=== PATIENT | male | born 1985 | race Caucasian/White ===

== ENCOUNTER 2018-08-15 11:31 | Emergency (ER) | payer OTHER ==
--- NOTE | 2018-08-15 12:32 | ED ---
URI HPI - General Chief Complaint: Upper Respiratory Infection Stated Complaint: Chest Congestion Time Seen by Provider: 08/15/18 11:45 Source: patient, RN notes reviewed Mode of arrival: ambulatory Limitations: no limitations - History of Present Illness Initial Comments: 32-year-old male presents emergency Department chief complaint cough congestion 2 weeks. Patient states it's not getting better. He states he has productive cough with green sputum. Patient's had some intermittent shortness of breath no chest pain. Patient denies current fever or chills he did have someone symptoms started. Denies ear pain does admit to facial pressure and nasal congestion. Patient has not taken any [id number] cough and cold medications NO KNOWN DRUG ALLERGIES. - Related Data Home Medications Medication Instructions Recorded Confirmed Ibuprofen [Motrin] 800 mg PO TID 07/15/16 07/15/16 Sertraline HCl [Zoloft] 100 mg PO DAILY 07/15/16 07/15/16 Previous Rx's Medication Instructions Recorded Benztropine Mesylate [Cogentin] 1 mg PO DAILY #30 tab 07/22/16 Citalopram Hydrobromide [CeleXA] 40 mg PO DAILY #30 tab 07/22/16 Divalproex ER [Depakote ER] 1,000 mg PO HS #60 tab.er.24h 07/22/16 Haloperidol [Haldol] 10 mg PO HS #60 tab 07/22/16 Ibuprofen [Motrin] 600 mg PO Q8H #30 tab 07/22/16 LORazepam [Ativan] 0.5 mg PO QID #30 tab 07/22/16 Propranolol [Inderal] 20 mg PO TID #60 tab 07/22/16 traMADol HCl [Ultram] 50 mg PO BID #30 tab 07/22/16 traZODone HCL [Desyrel] 150 mg PO HS #30 tab 07/22/16 Levofloxacin [Levaquin] 500 mg PO DAILY #10 tab 08/15/18 predniSONE 50 mg PO DAILY #5 tab 08/15/18 Allergies Allergy/AdvReac Type Severity Reaction Status Date / Time No Known Allergies Allergy Verified 08/15/18 11:38 Review of Systems ROS Statement: Those systems with pertinent positive or pertinent negative responses have been documented in the HPI. ROS Other: All systems not noted in ROS Statement are negative. Past Medical History Past Medical History: Hypertension, Musculoskeletal Disorder Additional Past Medical History / Comment(s): 3 surgeries to L Knee, and the knee cap was removed 05/31 History of Any Multi-Drug Resistant Organisms: None Reported Past Surgical History: Orthopedic Surgery, Tonsillectomy Additional Past Surgical History / Comment(s): left knee 3 surgeries Past Anesthesia/Blood Transfusion Reactions: No Reported Reaction Past Psychological History: ADD/ADHD, Anxiety, Depression, PTSD Smoking Status: Never smoker Past Alcohol Use History: Occasional Past Drug Use History: Heroin, Marijuana - Past Family History Mother Family Medical History: No Reported History Father Family Medical History: No Reported History Brother(s) Family Medical History: No Reported History General Exam Limitations: no limitations General appearance: alert, in no apparent distress Head exam: Present: atraumatic, normocephalic, normal inspection Eye exam: Present: normal appearance, PERRL, EOMI. Absent: scleral icterus, conjunctival injection, periorbital swelling ENT exam: Present: mucous membranes moist, TM's normal bilaterally, normal external ear exam. Absent: normal oropharynx (Postnasal drainage) Neck exam: Present: normal inspection, full ROM. Absent: tenderness, meningismus, lymphadenopathy Respiratory exam: Present: normal lung sounds bilaterally. Absent: respiratory distress, wheezes, rales, rhonchi, stridor Cardiovascular Exam: Present: regular rate, normal rhythm, normal heart sounds. Absent: systolic murmur, diastolic murmur, rubs, gallop, clicks Back exam: Absent: CVA tenderness (R), CVA tenderness (L) Skin exam: Present: warm, dry, intact, normal color. Absent: rash Course Vital Signs 08/15/18 08/15/18 11:38 12:19 Temperature 98 F Pulse Rate 94 Respiratory 18 20 Rate Blood Pressure 162/117 O2 Sat by Pulse 97 Oximetry Medical Decision Making - Medical Decision Making 32-year-old male presented from for cough and congestion. Patient symptoms have been present for 2 weeks. Chest x-ray shows early evidence of pneumonia on the right. Patient was treated with antibiotics and steroids for acute sinusitis and pneumonia. Return parameters were discussed. Disposition Clinical Impression: Sinusitis, Pneumonia Disposition: HOME SELF-CARE Condition: Stable Instructions: Upper Respiratory Infection (ED) Additional Instructions: Please return to the Emergency Department if symptoms worsen or any other concerns. Prescriptions: Levofloxacin [Levaquin] 500 mg PO DAILY #10 tab predniSONE 50 mg PO DAILY #5 tab Is patient prescribed a controlled substance at d/c from ED?: No Referrals: None,Stated [Primary Care Provider] - 1-2 days Time of Disposition: 13:15
--- NOTE | 2018-08-15 13:00 | XR ---
EXAMINATION TYPE: XR chest 2V DATE OF EXAM: 08/15/2018 COMPARISON: NONE HISTORY: Productive cough TECHNIQUE: Frontal and lateral views of the chest are obtained. FINDINGS: Peribronchial cuffing is seen along the bronchus intermedius and right heart border. There is no focal air space opacity, pleural effusion, or pneumothorax seen. The cardiac silhouette size is within normal limits. The osseous structures are intact. IMPRESSION: No focal consolidation to suggest pneumonia. Brachial cuffing along the bronchus interme dius suggests bronchitis or reactive airway disease.
[2018-08-15 13:39] VITALS: BP 143/92; PULSE 87; RESP 18; TEMP 97.9
== END 2018-08-15 13:32 | disposition home or self-care (01) ==
LOC: EC 11:31
DX: J18.9 Pneumonia, unspecified organism (principal); J01.90 Acute sinusitis, unspecified; F32.9 Major depressive disorder, single episode, unspecified; F41.9 Anxiety disorder, unspecified; F43.10 Post-traumatic stress disorder, unspecified; Z79.1 Long term (current) use of non-steroidal anti-inflammatories (NSAID); Z79.899 Other long term (current) drug therapy; Z90.89 Acquired absence of other organs
CPT/HCPCS: 71046; 99284

== ENCOUNTER 2018-09-21 22:53 | Emergency (ER) | payer OTHER ==
[2018-09-21 23:03] VITALS: TEMP 98.7
[2018-09-21] MEDS ORDERED: LORazepam 2 MG/ML INJ IM STA (23:14)
[2018-09-21] MEDS ORDERED: diphenhydrAMINE 50 MG/ML 1 ML VIAL IM STA (23:23)
[2018-09-21] MEDS ORDERED: HALOPERIDOL LACTATE 5 MG/ML 1 ML VIAL IM STA (23:23)
--- NOTE | 2018-09-21 23:33 | ED ---
Psych HPI - General Source: patient, police Mode of arrival: ambulatory <Lakeshia Reyes - Last Filed: 09/21/18 23:31> <Faheem Alvarado - Last Filed: 09/22/18 11:20> - General Chief Complaint: Psychiatric Symptoms Stated Complaint: Mental Health Time Seen by Provider: 09/21/18 23:13 - History of Present Illness Initial Comments: Dorian is a 32-year-old male that extensive psychiatric history presents the emergency department today in the custody of the [facility] for psychiatric evaluation. Patient states that he "wants to fucking " and that people keep pushing his buttons which makes him want to kill them. Patient reports he has been drinking tonight, he states that he drinks every night. He states that tonight the thoughts of wanting to and wanting to kill people overwhelmed and so he called 911 so that he wanted to hurt anybody. Patient states that he he's been progressively worsening over the last 4 weeks. He states that he's been harming himself, he has superficial lacerations the bilateral forearms consistent with self-inflicted injuries. (Lakeshia Reyes) - Related Data Home Medications Medication Instructions Recorded Confirmed Cholecalciferol [Vitamin D3] 5,000 unit PO DAILY 09/22/18 09/22/18 Gabapentin [Neurontin] 100 mg PO TID 09/22/18 09/22/18 Sertraline [Zoloft] 50 mg PO DAILY 09/22/18 09/22/18 traZODone HCL 150 mg PO HS 09/22/18 09/22/18 Previous Rx's Medication Instructions Recorded Propranolol [Inderal] 20 mg PO TID #60 tab 07/22/16 Allergies Allergy/AdvReac Type Severity Reaction Status Date / Time No Known Allergies Allergy Verified 09/22/18 07:51 Review of Systems ROS Other: All systems not noted in ROS Statement are negative. <Lakeshia Reyes - Last Filed: 09/21/18 23:31> ROS Other: All systems not noted in ROS Statement are negative. <Faheem Alvarado - Last Filed: 09/22/18 11:20> ROS Statement: Those systems with pertinent positive or pertinent negative responses have been documented in the HPI. Past Medical History Past Medical History: Hypertension, Musculoskeletal Disorder Additional Past Medical History / Comment(s): 3 surgeries to L Knee, and the knee cap was removed 05/31, History of Any Multi-Drug Resistant Organisms: None Reported Past Surgical History: Orthopedic Surgery, Tonsillectomy Additional Past Surgical History / Comment(s): left knee 3 surgeries, Past Anesthesia/Blood Transfusion Reactions: No Reported Reaction Past Psychological History: ADD/ADHD, Anxiety, Depression, PTSD Smoking Status: Never smoker Past Alcohol Use History: Abuse, Daily, Heavy Past Drug Use History: Heroin, Marijuana - Past Family History Mother Family Medical History: No Reported History Father Family Medical History: No Reported History Brother(s) Family Medical History: No Reported History <Lakeshia Reyes - Last Filed: 09/21/18 23:31> General Exam Limitations: no limitations <Lakeshia Reyes - Last Filed: 09/21/18 23:31> <Faheem Alvarado - Last Filed: 09/22/18 11:20> - General Exam Comments Initial Comments: Physical Exam GENERAL: Appears intoxicated HENT: Normocephalic, Atraumatic. EYES: PERRL, EOMI PULMONARY: Unlabored respirations. No audible rales rhonchi or wheezing was noted. CARDIOVASCULAR: There is a regular rate and rhythm without any murmurs gallops or rubs. ABDOMEN: Soft and nontender with normal bowel sounds. SKIN: Superficial lacerations to anterior and posterior surfaces of bilateral forearms consistent with self-harm : Deferred NEUROLOGIC: Patient is alert and oriented x3. Moving all extremities spontaneously MUSCULOSKELETAL: Normal extremities with adequate strength and full range of motion. No lower extremity swelling or edema. No calf tenderness. PSYCHIATRIC: Agitated, suicidal, homicidal Limitations: no limitations (Lakeshia Reyes) Vital Signs 09/21/18 09/22/18 22:56 06:26 Temperature 98.7 F Pulse Rate 115 H 97 Respiratory 18 16 Rate Blood Pressure 163/108 134/75 O2 Sat by Pulse 97 97 Oximetry Medical Decision Making <Lakeshia Reyes - Last Filed: 09/21/18 23:31> - Lab Data Result diagrams: 09/22/18 00:40 <Faheem Alvarado - Last Filed: 09/22/18 11:20> - Medical Decision Making 29 female the ER for evaluation patient presents ER for evaluation of psychiatric illness. Patient was seen and evaluated by psychiatry here in the ER and will be followed up with outpatient at [facility]. Patient not homicidal or suicidal currently, patient can be discharged home (Faheem Alvarado) - Lab Data Lab Results 09/22/18 09/22/18 09/22/18 Range/Units 00:06 00:40 00:40 WBC 6.0 (3.8-10.6) k/uL RBC 4.52 (4.30-5.90) m/uL Hgb 14.4 (13.0-17.5) gm/dL Hct 42.2 (39.0-53.0) % MCV 93.3 (80.0-100.0) fL MCH 31.8 (25.0-35.0) pg MCHC 34.0 (31.0-37.0) g/dL RDW 12.4 (11.5-15.5) % Plt Count 293 (150-450) k/uL Neutrophils % 65 % Lymphocytes % 23 % Monocytes % 5 % Eosinophils % 5 % Basophils % 1 % Neutrophils # 3.9 (1.3-7.7) k/uL Lymphocytes # 1.4 (1.0-4.8) k/uL Monocytes # 0.3 (0-1.0) k/uL Eosinophils # 0.3 (0-0.7) k/uL Basophils # 0.0 (0-0.2) k/uL Salicylates <1.0 mg/dL Urine Opiates Screen Not Detected (NotDetected) Ur Oxycodone Screen Not Detected (NotDetected) Urine Methadone Screen Not Detected (NotDetected) Ur Propoxyphene Screen Not Detected (NotDetected) Acetaminophen <10.0 ug/mL Ur Barbiturates Screen Not Detected (NotDetected) Valproic Acid <10.0 ug/mL U Tricyclic Antidepress Not Detected (NotDetected) Ur Phencyclidine Scrn Not Detected (NotDetected) Ur Amphetamines Screen Not Detected (NotDetected) U Methamphetamines Scrn Not Detected (NotDetected) U Benzodiazepines Scrn Not Detected (NotDetected) Urine Cocaine Screen Not Detected (NotDetected) U Marijuana (THC) Screen Not Detected (NotDetected) Serum Alcohol 202 H* mg/dL Disposition <Lakeshia Reyes P - Last Filed: 09/21/18 23:31> Is patient prescribed a controlled substance at d/c from ED?: No <Faheem Alvarado - Last Filed: 09/22/18 11:20> Clinical Impression: Pema (monopolar) single episode or unspecified Disposition: HOME SELF-CARE Condition: Good Instructions: Brief Psychotic Disorder (ED) Referrals: None,Stated [Primary Care Provider] - 1-2 days
[2018-09-22 00:33] LABS: Amphetamine Screen,Urine Not Detected (NotDetected); Barbiturate Screen,Urine Not Detected (NotDetected); Benzodiazepines Screen,Urine Not Detected (NotDetected); Cocaine Screen,Urine Not Detected (NotDetected); Methadone Screen, Urine Not Detected (NotDetected); Opiate Screen,Urine Not Detected (NotDetected); Oxycodone Screen, Urine Not Detected (NotDetected); Phencyclidine Screen,Urine Not Detected (NotDetected); Tricyclic Antidepressant,Urine Not Detected (NotDetected); Urn Cannabinoid Scrn Not Detected (NotDetected)
[2018-09-22 00:57] LABS: Basophils % (A) 1 %; Eosinophils # (A) 0.3 k/uL (0-0.7); Eosinophils % (A) 5 %; HCT 42.2 % (39.0-53.0); HGB 14.4 gm/dL (13.0-17.5); Lymphocytes # (A) 1.4 k/uL (1.0-4.8); Lymphocytes % (A) 23 %; MCH 31.8 pg (25.0-35.0); MCV 93.3 fL (80.0-100.0); Mean Platelet Volume 6.1; Monocytes # (A) 0.3 k/uL (0-1.0); Monocytes % (A) 5 %; Neutrophils # (A) 3.9 k/uL (1.3-7.7); Neutrophils % (A) 65 %; Platelet Count 293 k/uL (150-450); RBC 4.52 m/uL (4.30-5.90); RDW 12.4 % (11.5-15.5)
[2018-09-22 01:02] LABS: Acetaminophen <10.0 ug/mL; Salicylate <1.0 mg/dL
[2018-09-22 01:07] LABS: Valproic Acid (Depakene) <10.0 ug/mL
[2018-09-22 01:15] LABS: Alcohol 202 mg/dL
[2018-09-22 06:27] VITALS: BP 134/75; PULSE 97; RESP 16
[2018-09-22 15:18] LABS: Appearance,Urine Clear (Clear); Bilirubin,Urine Negative (Negative); Blood,Urine Negative (Negative); Color,Urine Colorless; Glucose,Urine (UA) Negative (Negative); Ketones,Urine Negative (Negative); Leukocyte Esterase,Urine Negative (Negative); Nitrite,Urine Negative (Negative); Protein,Urine Negative (Negative); Specific Gravity,Urine 1.004 (1.001-1.035); Urobilinogen,Urine <2.0 mg/dL (<2.0)
== END 2018-09-22 11:37 | disposition home or self-care (01) ==
LOC: EC 22:53
DX: F32.9 Major depressive disorder, single episode, unspecified (principal); S51.812A Laceration without foreign body of left forearm, initial encounter; S51.811A Laceration without foreign body of right forearm, initial encounter; X83.8XXA Intentional self-harm by other specified means, initial encounter; F41.9 Anxiety disorder, unspecified; F43.10 Post-traumatic stress disorder, unspecified; Z98.890 Other specified postprocedural states; Z79.899 Other long term (current) drug therapy
CPT/HCPCS: 36415; 80164; 85025; 81003; 80306; 83520 ×2; 99285; 96372 ×3; G0480; J2060; J1200; J1630; 80320

== ENCOUNTER 2018-10-05 23:26 | Inpatient (IN) | payer MEDICAID, OTHER ==
--- NOTE | 2018-10-06 00:01 | ED ---
General Adult HPI - General Source: patient Mode of arrival: ambulatory Limitations: no limitations <Rosales Stephens - Last Filed: 10/06/18 00:01> <Faheem Tillman - Last Filed: 10/06/18 13:44> - General Chief complaint: Psychiatric Symptoms Stated complaint: Homicidal - Related Data Home Medications Medication Instructions Recorded Confirmed Gabapentin [Neurontin] 100 mg PO TID 09/22/18 10/06/18 Sertraline [Zoloft] 50 mg PO DAILY 09/22/18 10/06/18 traZODone HCL 150 mg PO HS 09/22/18 10/06/18 Allergies Allergy/AdvReac Type Severity Reaction Status Date / Time No Known Allergies Allergy Verified 10/06/18 09:12 Review of Systems ROS Other: All systems not noted in ROS Statement are negative. <Rosales Stephens - Last Filed: 10/06/18 00:01> ROS Other: All systems not noted in ROS Statement are negative. <Faheem Tillman - Last Filed: 10/06/18 13:44> ROS Statement: Those systems with pertinent positive or pertinent negative responses have been documented in the HPI. Past Medical History Past Medical History: Hypertension, Musculoskeletal Disorder Additional Past Medical History / Comment(s): 3 surgeries to L Knee, and the knee cap was removed 05/31, History of Any Multi-Drug Resistant Organisms: None Reported Past Surgical History: Orthopedic Surgery, Tonsillectomy Additional Past Surgical History / Comment(s): left knee 3 surgeries, Past Anesthesia/Blood Transfusion Reactions: No Reported Reaction Past Psychological History: ADD/ADHD, Anxiety, Depression, PTSD Smoking Status: Never smoker Past Alcohol Use History: Abuse, Daily, Heavy Past Drug Use History: Heroin, Marijuana - Past Family History Mother Family Medical History: No Reported History Father Family Medical History: No Reported History Brother(s) Family Medical History: No Reported History <Rosales Stephens - Last Filed: 10/06/18 00:01> General Exam Limitations: no limitations <Rosales Stephens - Last Filed: 10/06/18 00:01> Vital Signs 10/05/18 10/06/18 10/06/18 23:28 01:43 13:39 Temperature 98.2 F 98.0 F 98.0 F Pulse Rate 96 82 82 Respiratory 16 18 18 Rate Blood Pressure 140/97 133/90 139/88 O2 Sat by Pulse 97 96 97 Oximetry Medical Decision Making <Rosales Stephens - Last Filed: 10/06/18 00:01> - Lab Data Result diagrams: 10/06/18 01:39 10/06/18 01:39 <TillmanFaheem - Last Filed: 10/06/18 13:44> - Medical Decision Making Dictation was produced using [employer] dictation software. please excuse any grammatical, word or spelling errors. Chief Complaint: 32-year-old male with homicidal ideation. History of Present Illness: Patient is a 32-year-old male is brought in by police department. Patient has allegedly been threatening people on social media. Patient feels he wants to kill everybody. Patient also exhibiting suicidal behavior. He is rating to jump in front of cars. He reports that he doesn't care if he dies. Patient does have history of psychiatric disease. He' s been without his medications for 2 months patient has no other complaints. The ROS documented in this emergency department record has been reviewed and confirmed by me. Those systems with pertinent positive or negative responses have been documented in the HPI. All other systems are other negative and/or noncontributory. PHYSICAL EXAM: General Impression: Alert and oriented x3, not in acute distress HEENT: Normocephalic atraumatic, extra-ocular movements intact, pupils equal and reactive to light bilaterally, mucous membranes moist. Cardiovascular: Heart regular rate and rhythm, S1&S2 audible, no murmurs, rubs or gallops Chest: Lungs clear to auscultation bilaterally, no rhonchi, no wheeze, no rales Abdomen: Bowel sounds present, abdomen soft, non-tender, non-distended, no organomegaly Musculoskeletal: Pulses present and equal in all extremities, no peripheral edema Motor: Power 5/5 bilaterally, no focal deficits noted Neurological: CN II-XII grossly intact, no focal motor or sensory deficits noted Skin: Intact with no visualized rashes Psych: Normal affect and mood ED course: 32yo male presents with suicidal homicidal behavior. Vital signs upon arrival are within acceptable limits. (Rosales Stephens) - Lab Data Lab Results 10/06/18 10/06/18 10/06/18 Range/Units 01:29 01:39 01:39 WBC 5.8 (3.8-10.6) k/uL RBC 4.57 (4.30-5.90) m/uL Hgb 14.3 (13.0-17.5) gm/dL Hct 44.0 (39.0-53.0) % MCV 96.1 (80.0-100.0) fL MCH 31.3 (25.0-35.0) pg MCHC 32.6 (31.0-37.0) g/dL RDW 12.5 (11.5-15.5) % Plt Count 337 (150-450) k/uL Neutrophils % 59 % Lymphocytes % 24 % Monocytes % 6 % Eosinophils % 8 % Basophils % 2 % Neutrophils # 3.4 (1.3-7.7) k/uL Lymphocytes # 1.4 (1.0-4.8) k/uL Monocytes # 0.3 (0-1.0) k/uL Eosinophils # 0.5 (0-0.7) k/uL Basophils # 0.1 (0-0.2) k/uL Sodium 143 (137-145) mmol/L Potassium 5.3 H (3.5-5.1) mmol/L Chloride 108 H (98-107) mmol/L Carbon Dioxide 26 (22-30) mmol/L Anion Gap 9 mmol/L BUN 10 (9-20) mg/dL Creatinine 1.04 (0.66-1.25) mg/dL Est GFR (CKD-EPI)AfAm >90 (>60 ml/min/1.73 sqM) Est GFR (CKD-EPI)NonAf >90 (>60 ml/min/1.73 sqM) Glucose 84 (74-99) mg/dL Calcium 9.6 (8.4-10.2) mg/dL Urine Opiates Screen Not Detected (NotDetected) Ur Oxycodone Screen Not Detected (NotDetected) Urine Methadone Screen Not Detected (NotDetected) Ur Propoxyphene Screen Not Detected (NotDetected) Ur Barbiturates Screen Not Detected (NotDetected) U Tricyclic Antidepress Not Detected (NotDetected) Ur Phencyclidine Scrn Not Detected (NotDetected) Ur Amphetamines Screen Not Detected (NotDetected) U Methamphetamines Scrn Not Detected (NotDetected) U Benzodiazepines Scrn Not Detected (NotDetected) Urine Cocaine Screen Not Detected (NotDetected) U Marijuana (THC) Screen Not Detected (NotDetected) Serum Alcohol 103 mg/dL Disposition <Rosales Stephens - Last Filed: 10/06/18 00:01> Time of Disposition: 13:44 <Faheem Tillman - Last Filed: 10/06/18 13:44> Clinical Impression: Homicidal ideations Disposition: ADMITTED IP TO THIS HOSP Referrals: None,Stated [Primary Care Provider] - 1-2 days
[2018-10-06] MEDS ORDERED: LORazepam 2 MG/ML INJ IV STA (01:10)
[2018-10-06 01:53] LABS: Basophils # (A) 0.1 k/uL (0-0.2); Basophils % (A) 2 %; Eosinophils # (A) 0.5 k/uL (0-0.7); Eosinophils % (A) 8 %; HGB 14.3 gm/dL (13.0-17.5); Lymphocytes # (A) 1.4 k/uL (1.0-4.8); Lymphocytes % (A) 24 %; MCH 31.3 pg (25.0-35.0); MCHC 32.6 g/dL (31.0-37.0); MCV 96.1 fL (80.0-100.0); Mean Platelet Volume 6.1; Monocytes # (A) 0.3 k/uL (0-1.0); Monocytes % (A) 6 %; Neutrophils # (A) 3.4 k/uL (1.3-7.7); Neutrophils % (A) 59 %; Platelet Count 337 k/uL (150-450); RBC 4.57 m/uL (4.30-5.90); RDW 12.5 % (11.5-15.5); WBC 5.8 k/uL (3.8-10.6)
[2018-10-06 02:03] LABS: Anion Gap 9 mmol/L; Blood Urea Nitrogen 10 mg/dL (9-20); Calcium 9.6 mg/dL (8.4-10.2); Carbon Dioxide 26 mmol/L (22-30); Chloride 108 mmol/L (98-107); Glucose 84 mg/dL (74-99); Potassium 5.3 mmol/L (3.5-5.1); Sodium 143 mmol/L (137-145)
[2018-10-06 02:03] LABS: Amphetamine Screen,Urine Not Detected (NotDetected); Barbiturate Screen,Urine Not Detected (NotDetected); Benzodiazepines Screen,Urine Not Detected (NotDetected); Cocaine Screen,Urine Not Detected (NotDetected); Methadone Screen, Urine Not Detected (NotDetected); Opiate Screen,Urine Not Detected (NotDetected); Oxycodone Screen, Urine Not Detected (NotDetected); Phencyclidine Screen,Urine Not Detected (NotDetected); Tricyclic Antidepressant,Urine Not Detected (NotDetected); Urn Cannabinoid Scrn Not Detected (NotDetected)
[2018-10-06 02:04] LABS: Alcohol 103 mg/dL
[2018-10-06 17:05] VITALS: BMI 25.7
[2018-10-06] MEDS ORDERED: ACETAMINOPHEN TAB 325 MG TAB PO PRN (17:50)
[2018-10-06] MEDS ORDERED: ZIPRASIDONE 20 MG VIAL IM PRN (17:50)
[2018-10-06] MEDS ORDERED: MAGNESIUM HYDROXIDE 2,400 MG/10 ML CUP PO PRN (17:50)
[2018-10-06] MEDS ORDERED: MAG HYDROX/AL HYDROX/SIMETH 30 ML CUP PO PRN (17:50)
[2018-10-06] MEDS ORDERED: LORazepam 2 MG/ML INJ IM PRN (17:55)
[2018-10-06] MEDS ORDERED: NICOTINE 14MG/24HR PATCH TRANSDERM SCH (18:00)
[2018-10-06] MEDS: LORazepam 1 MG TAB PO PRN (19:03)
--- NOTE | 2018-10-06 19:03 | P.HPIM ---
History of Present Illness H&P Date: 10/06/18 Chief Complaint: homicidal thoughts Patient is a 32-year-old male with a past medical history of hypertension, cardiac enlargement, and neuropathy who presented to the ER with complaints of homicidal and suicidal thoughts. He is since been admitted to mental health unit. Patient seen and examined. He states he had pneumonia a month ago but has been doing well otherwise. He denies any recent cough, cold, fever, flu, nausea, vomiting, diarrhea or constipation. He does sometimes have loose stools when he drinks alcohol. Recently he has been drinking 5 24 ounce beers daily. He states that about 4 PM he feels the need to start drinking. He has a history of cocaine and heroin use but is moving clean for the last 5 years. He tells me he came into a bad thing a month ago and has been hostile and angry since then. He reports that he takes propranolol 20 mg daily but that he has been out for 1 week as he left his medications at the house that he does not want to go back to. Review of Systems Pertinent positives and negatives as discussed in HPI, a complete review of systems was performed and all other systems are negative. Past Medical History Past Medical History: Hypertension, Musculoskeletal Disorder, Pneumonia Additional Past Medical History / Comment(s): 3 surgeries to L Knee, and the knee cap was removed 05/31, sinusitis, pt stated has an "enlarged heart muscle" , "fatty liver", neuropathy,chronic pain, adhd/anxiety/depression/ptsd/ hx cutting(last time he cut himself was 5 months ago),past heroin used -quit 2013 History of Any Multi-Drug Resistant Organisms: None Reported Past Surgical History: Orthopedic Surgery, Tonsillectomy Additional Past Surgical History / Comment(s): left knee 3 surgeries, Past Anesthesia/Blood Transfusion Reactions: No Reported Reaction Additional Past Anesthesia/Blood Transfusion Reaction / Comment(s): has never had a blood transfusion Past Psychological History: ADD/ADHD, Anxiety, Depression, PTSD Smoking Status: Never smoker Past Alcohol Use History: Abuse, Daily, Heavy Past Drug Use History: Heroin, Marijuana Additional History: Works as a industrial roofer helper - Past Family History Mother Family Medical History: No Reported History Father Family Medical History: No Reported History Brother(s) Family Medical History: No Reported History Medications and Allergies Home Medications Medication Instructions Recorded Confirmed Type Gabapentin [Neurontin] 100 mg PO TID 09/22/18 10/06/18 History Sertraline [Zoloft] 50 mg PO DAILY 09/22/18 10/06/18 History traZODone HCL 150 mg PO HS 09/22/18 10/06/18 History Propranolol [Inderal] 20 mg PO TID 10/06/18 10/06/18 History traMADol HCl [Ultram] 50 mg PO QID PRN 10/06/18 10/06/18 History Allergies Allergy/AdvReac Type Severity Reaction Status Date / Time No Known Allergies Allergy Verified 10/06/18 09:12 Physical Exam Osteopathic Statement: *. No significant issues noted on an osteopathic structural exam other than those noted in the History and Physical/Consult. Vitals: Vital Signs Temp Pulse Pulse Resp BP BP Pulse Ox 10/06/18 17:58 97.7 F 85 18 147/103 10/06/18 16:54 97.7 F 85 18 147/103 10/06/18 13:39 98.0 F 82 18 139/88 97 10/06/18 01:43 98.0 F 82 18 133/90 96 10/05/18 23:28 98.2 F 96 16 140/97 97 Intake and Output 10/06/18 10/06/18 10/06/18 06:59 14:59 22:59 Other: Weight 86.183 kg General: non toxic, no distress, appears at stated age, normal weight Derm: Multiple tattoos no unusual rashes/lesions no unusual ecchymoses, warm, dry Head: atraumatic, normocephalic, symmetric Eyes: EOMI, no lid lag, anicteric sclera, pupils equal round reactive to light ENT: Nose and ears atraumatic, no thrush, no pharyngeal erythema Neck: No thyromegaly, no cervical lymphadenopathy, trachea midline, supple Mouth: no lip lesion, mucus membranes moist Cardiovascular: S1S2 reg, no murmur, positive posterior tibial pulse bilateral, no edema, capillary refill less than 2 seconds Lungs: CTA bilateral, no rhonchi, no rales , no accessory muscle use Abdominal: soft, nontender to palpation, no guarding, no appreciable organomegaly, normal bowel sounds Ext: no gross muscle atrophy, muscle strength 5 out of 5 in all 4 extremities grossly, no contractures, Neuro: CN II-XI grossly intact, light touch intact all 4 extremities, finger to nose within normal limits, Psych: Alert, oriented, appropriate affect Results CBC & Chem 7: 10/06/18 01:39 10/06/18 01:39 Labs: Abnormal Lab Results - Last 24 Hours (Table) 10/06/18 Range/Units 01:39 Potassium 5.3 H (3.5-5.1) mmol/L Chloride 108 H (98-107) mmol/L Thrombosis Risk Factor Assmnt - DVT/VTE Prophylaxis DVT/VTE Prophylaxis: Low risk, early ambulation encouraged - Choose All That Apply Any of the Below Risk Factors Present?: No Other Risk Factors: No Other congenital or acquired thrombophilia - If yes, enter type in comment: No Thrombosis Risk Factor Assessment Level: Very Low Risk Assessment and Plan Assessment: HTN - resume home propranolol - Follow BP - refilled Rx to our outpatient pharmacy Alcohol abuse - thiamine - MVI - management of withdrawal per psych Unprotected intercourse - HIV, chlamydia, and gonorrhea testing Homicidal thought - your psych management Thank you for allowing us to participate in the care of this patient. We will follow peripherally. Do not hesitate to contact us with questions. Someone can be reached from the [facility] hospitalist group at all hours of the day at [phone].
[2018-10-06] MEDS: PROPRANOLOL 20 MG TAB PO SCH (23:19)
[2018-10-07] MEDS: PROPRANOLOL 20 MG TAB PO SCH ×4 (00:04→21:01)
[2018-10-07 05:41] LABS: HIV 1 AB Non-Reactive (Non-Reactive); HIV AB P24 Non-Reactive (Non-Reactive); HIV P24 AG Non-Reactive (Non-Reactive)
[2018-10-07] MEDS: MULTIVITAMINS, THERA 1 EACH TAB PO SCH (08:31)
[2018-10-07] MEDS: THIAMINE 100 MG TAB PO SCH (08:31)
[2018-10-07] MEDS: LORazepam 1 MG TAB PO PRN ×3 (08:31→23:59)
[2018-10-07 09:22] LABS: Basophils # (A) 0.1 k/uL (0-0.2); Basophils % (A) 1 %; Eosinophils # (A) 0.5 k/uL (0-0.7); Eosinophils % (A) 7 %; HCT 44.5 % (39.0-53.0); Lymphocytes # (A) 1.4 k/uL (1.0-4.8); Lymphocytes % (A) 21 %; MCH 32.3 pg (25.0-35.0); MCHC 33.7 g/dL (31.0-37.0); MCV 95.9 fL (80.0-100.0); Mean Platelet Volume 6.7; Monocytes # (A) 0.3 k/uL (0-1.0); Monocytes % (A) 5 %; Neutrophils # (A) 4.3 k/uL (1.3-7.7); Neutrophils % (A) 64 %; Platelet Count 305 k/uL (150-450); RBC 4.64 m/uL (4.30-5.90); RDW 12.8 % (11.5-15.5); WBC 6.7 k/uL (3.8-10.6)
[2018-10-07 09:40] LABS: Appearance,Urine Clear (Clear); Bilirubin,Urine Negative (Negative); Blood,Urine Negative (Negative); Color,Urine Yellow; Glucose,Urine (UA) Negative (Negative); Ketones,Urine Negative (Negative); Leukocyte Esterase,Urine Negative (Negative); Nitrite,Urine Negative (Negative); Protein,Urine Trace (Negative); Specific Gravity,Urine 1.026 (1.001-1.035); Urobilinogen,Urine <2.0 mg/dL (<2.0)
[2018-10-07 10:02] LABS: ALT 24 U/L (21-72); AST 24 U/L (17-59); Albumin 4.6 g/dL (3.5-5.0); Alkaline Phosphatase 66 U/L (38-126); Anion Gap 10 mmol/L; Blood Urea Nitrogen 17 mg/dL (9-20); Carbon Dioxide 23 mmol/L (22-30); Chloride 105 mmol/L (98-107); Cholesterol 285 mg/dL (<200); Glucose 157 mg/dL (74-99); HDL Cholesterol 85 mg/dL (40-60); LDL Cholesterol,Calculated 162 mg/dL (0-99); Potassium 4.2 mmol/L (3.5-5.1); Sodium 138 mmol/L (137-145); Total Bilirubin 0.9 mg/dL (0.2-1.3); Total Protein 7.8 g/dL (6.3-8.2); Triglycerides 189 mg/dL (<150)
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
[2018-10-07] MEDS: SERTRALINE 50 MG TAB PO SCH (12:27)
[2018-10-07] MEDS: GABAPENTIN 100 MG CAP PO SCH ×3 (12:27→21:01)
[2018-10-07 17:32] LABS: Hemoglobin A1C 5.4 % (4.0-6.0)
[2018-10-07] MEDS: MELATONIN 5 MG TABLET PO SCH (21:01)
[2018-10-08] MEDS: PROPRANOLOL 20 MG TAB PO SCH ×3 (08:34→21:07)
[2018-10-08] MEDS: MULTIVITAMINS, THERA 1 EACH TAB PO SCH (08:34)
[2018-10-08] MEDS: THIAMINE 100 MG TAB PO SCH (08:34)
[2018-10-08] MEDS: SERTRALINE 50 MG TAB PO SCH (08:34)
[2018-10-08] MEDS: GABAPENTIN 100 MG CAP PO SCH ×3 (08:34→21:07)
--- NOTE | 2018-10-08 09:22 | P.PN ---
Progress Note - Text Interval history: The patient's found in his room he follows me to an interview room. He reports his mood is still down he still feels hopeless. He feels safe in the hospital but otherwise has continued suicidal thoughts. He has not been attending groups as he finds it very difficult to tolerate other people and their platitudes. We reviewed his psychotropic medication his questions were answered. He indicates he slept last night staff report he slept 5-6 hours. Appetite stable. Mental status exam: The patient is alert he is dressed in his own clothing. He seated in the chair calmly. He fidgets with a joiner throughout the session taking it apart and putting it back together. He indicates feeling angry with a peer on the unit and felt provoked by that peer last evening. He reports no auditory or visual hallucinations or any specific delusions. He is endorsing no acute homicidal ideation. He does not appear hypomanic or manic. Thought processes could beat circumstantial but not tangential he demonstrates no loose associations or flight of ideas. Insight and judgment impaired. Plan: The patient will continue on his current psychotropic medication we will likely titrate the Zoloft tomorrow and we'll consider titrating the Neurontin. He is encouraged to participate in the milieu at least partially. Vital signs reviewed. We will monitor him for safety.
[2018-10-08] MEDS: LORazepam 1 MG TAB PO PRN ×2 (10:51→19:22)
[2018-10-08] MEDS: MELATONIN 5 MG TABLET PO SCH (21:07)
[2018-10-09] MEDS: GABAPENTIN 100 MG CAP PO SCH ×3 (08:00→21:00)
[2018-10-09] MEDS: PROPRANOLOL 20 MG TAB PO SCH ×3 (08:00→21:00)
[2018-10-09] MEDS: SERTRALINE 50 MG TAB PO SCH (08:00)
[2018-10-09] MEDS: LORazepam 1 MG TAB PO PRN ×2 (09:00→21:59)
[2018-10-09 09:46] LABS: C. trachomatis,PCR Negative (Neg,Equiv); Chlamydia trachomatis Source Urine; N. gonorrhoeae,PCR Negative (Neg,Equiv); Neisseria Source Urine
--- NOTE | 2018-10-09 10:17 | P.PN ---
Progress Note - Text Interval history: The patient is found in the [facility] drawing. He indicates his mood is okay this morning but it was too early to tell. He states he was able to sleep last night staff recorded he slept 7 hours. Appetite stable. We reviewed his psychotropic medications and discussed titrating the Zoloft 200 mg. He has no other questions or concerns regarding his medication. He states that he requires continued hospitalization to feel safe. We discussed that he will need to start considering a discharge plan. He continues to avoid group participation stating "I don't like other people". Mental status exam: The patient is alert he seated calmly in his chair actively drawing as we speak. He presents with adequate hygiene grooming. Eye contact is intermittent. He reports his mood is okay but qualifies that it's too early in the day to be sure. He indicates as any given day progresses he can get more irritable. He reports continued suicidal thoughts but feels safe in the hospital he is reporting no homicidal ideation. He reports a chronic struggle with feelings of anger and irritability. He reports no auditory or visual hallucinations or any specific delusions. There is no observed evidence of psychosis. He does not appear hypomanic or manic. Thought process is free of any tangential thinking loose associations or flight of ideas. Insight and judgment limited. Plan: The patient will continue on his current medications however we will titrate the Zoloft 200 mg daily. We will continue to monitor him for safety. He is encouraged to attempt some participation in group. He is not interested in inpatient chemical dependency treatment. We will continue to assess his safety risk on a daily basis.
[2018-10-09] MEDS: MULTIVITAMINS, THERA 1 EACH TAB PO SCH (12:43)
[2018-10-09] MEDS: THIAMINE 100 MG TAB PO SCH (12:43)
[2018-10-09] MEDS: MELATONIN 5 MG TABLET PO SCH (21:59)
[2018-10-10] MEDS: GABAPENTIN 100 MG CAP PO SCH ×2 (08:40→21:29)
[2018-10-10] MEDS: PROPRANOLOL 20 MG TAB PO SCH ×2 (08:40→21:29)
[2018-10-10] MEDS: SERTRALINE 100 MG TAB PO SCH (08:41)
[2018-10-10] MEDS: THIAMINE 100 MG TAB PO SCH (08:42)
[2018-10-10] MEDS: MULTIVITAMINS, THERA 1 EACH TAB PO SCH (08:42)
[2018-10-10] MEDS: LORazepam 1 MG TAB PO PRN (09:51)
[2018-10-11] MEDS: MELATONIN 5 MG TABLET PO SCH ×2 (02:05→20:45)
[2018-10-11] MEDS: GABAPENTIN 100 MG CAP PO SCH ×4 (07:43→20:46)
[2018-10-11] MEDS: PROPRANOLOL 20 MG TAB PO SCH ×4 (07:43→20:46)
[2018-10-11] MEDS: SERTRALINE 100 MG TAB PO SCH (08:03)
[2018-10-11] MEDS: LORazepam 1 MG TAB PO PRN ×2 (08:14→20:48)
[2018-10-11] MEDS: THIAMINE 100 MG TAB PO SCH (11:28)
[2018-10-11] MEDS: MULTIVITAMINS, THERA 1 EACH TAB PO SCH (11:28)
--- NOTE | 2018-10-11 16:24 | P.PN ---
Progress Note - Text Progress Note Date: 10/11/18 IDENTIFICATION DATA: 32-year-old male admitted to the mental health unit with symptoms of severe depression and suicidal ideation. INTERVAL HISTORY: Patient reports his depression is so, so, stating half the day he feels ok and half the day he feels depressed with low motivation. He reports feeling paranoid about people talking about him and watching him. He reports isolating himself due to his paranoia. He claims to have felt worse due to not taking ativan yesterday night. He says he has low frustration tolerance and feels annoyed by the noises around him. He reports going to only certain groups. MENTAL STATUS EXAMINATION: Patient appeared in fair grooming and hygiene. His speech is linear and goal directed. His mood is reported as ok and affect appropriate. Denies active suicidal or homicidal ideations. Reports paranoia. Insight and judgment are improving ASSESSMENT AND PLAN: Will start him on trazadone 50mg po qhs for insomnia Continue current medications Monitor for safety and symptoms
[2018-10-11] MEDS: traZODone HCL 50 MG TAB PO SCH (20:46)
[2018-10-12] MEDS: PROPRANOLOL 20 MG TAB PO SCH ×3 (08:23→21:29)
[2018-10-12] MEDS: SERTRALINE 100 MG TAB PO SCH (08:23)
[2018-10-12] MEDS: THIAMINE 100 MG TAB PO SCH (08:23)
[2018-10-12] MEDS: GABAPENTIN 100 MG CAP PO SCH (08:23)
[2018-10-12] MEDS: MULTIVITAMINS, THERA 1 EACH TAB PO SCH (08:23)
--- NOTE | 2018-10-12 09:36 | P.PN ---
Progress Note - Text Interval history: The patient is found in the hallway he follows me to an interview room. He indicates his mood is slowly improving. He reports he was tearful over the weekend he still feels depressed. He is concerned about where he'll stay how he'll make enough money to afford his own place. We reviewed his psychotropic medications. He continues to feel anxious and is using Ativan. He stated when he tried not to use the Ativan he became acutely anxious. He wonders if we are able to titrate the Neurontin which has helped with anxiety in the past. Mental status exam: The patient is alert he is dressed in his own clothing hygiene grooming adequate. Eye contact is intermittent. He did participate more in the conversation today. He endorses depressed and anxious mood. He reports some hopelessness thinking he reports feeling safe in the hospital. He describes no acute homicidal ideation intent or plan. He is endorsing no auditory or visual hallucinations or any specific delusions. He does not appear psychotic when observing him. He does not appear hypomanic or manic. Insight and judgment slowly improving. Plan: The patient will continue on his current medication and we will monitor him for safety. Neurontin will be titrated to 300 mg 3 times a day. If he sufficiently stabilized we will consider discharge on Friday. He is encouraged to fully participate in the milieu.
[2018-10-12] MEDS: GABAPENTIN 300 MG CAP PO SCH ×2 (15:34→21:29)
[2018-10-12] MEDS: LORazepam 1 MG TAB PO PRN (16:37)
[2018-10-12] MEDS: MELATONIN 5 MG TABLET PO SCH (21:29)
[2018-10-12] MEDS: traZODone HCL 50 MG TAB PO SCH (21:29)
[2018-10-13] MEDS: PROPRANOLOL 20 MG TAB PO SCH ×3 (08:50→21:12)
[2018-10-13] MEDS: SERTRALINE 100 MG TAB PO SCH (08:50)
[2018-10-13] MEDS: GABAPENTIN 300 MG CAP PO SCH ×3 (08:50→21:12)
--- NOTE | 2018-10-13 10:58 | P.PN ---
Progress Note - Text Interval history: The patient is found in the hallway follows me to an interview room. Spontaneously he states he can't be discharged tomorrow. He states that he does not feel safe and requires further hospitalization. We processed this further and one of his concerns is housing upon discharge. He indicates he has been eating he has been selectively attending groups. We discussed having him participate in inpatient chemical dependency treatment and he now verbalizes he is willing to participate. We discussed the process of calling the access line etc. Mental status exam: The patient is alert he is dressed in his own clothing hygiene grooming adequate. Eye contact is appropriate. He reports his mood is not good today he is concerned about being discharged too soon. He states he only struggles with violent thoughts but specifies no acute intent or plan of harming any specific person or group. He feels he can keep himself safe in the hospital. He demonstrates no verbal or physical aggressiveness. Insight and judgment limited. He is reporting no auditory or visual hallucinations there is no evidence of any specific delusions. Plan: The patient will call the access line to arrange inpatient chemical dependency treatment. We will continue his psychotropic medications at this time. Vital signs reviewed. We will monitor him for safety. He is indicating he feels unsafe being discharged at this time.
[2018-10-13] MEDS: MULTIVITAMINS, THERA 1 EACH TAB PO SCH (12:15)
[2018-10-13] MEDS: THIAMINE 100 MG TAB PO SCH (12:15)
[2018-10-13] MEDS: LORazepam 1 MG TAB PO PRN (16:33)
[2018-10-13] MEDS: traZODone HCL 50 MG TAB PO SCH (21:12)
[2018-10-13] MEDS: MELATONIN 5 MG TABLET PO SCH (21:12)
[2018-10-14] MEDS: GABAPENTIN 300 MG CAP PO SCH ×3 (08:12→20:53)
[2018-10-14] MEDS: SERTRALINE 100 MG TAB PO SCH (08:12)
[2018-10-14] MEDS: PROPRANOLOL 20 MG TAB PO SCH ×3 (08:13→20:53)
--- NOTE | 2018-10-14 09:35 | P.PN ---
Progress Note - Text Interval history: The patient is found in his room he follows me to an interview room. He shows me a paper sculpture that he has created that he states took 5-6 hours to construct. He reports he called the access line and was told he will meet criteria. A packet will need to be faxed and we will await a placement date. He states he will be able to get a ride to rehab from a friend. He continues to indicate he would not be safe if we discharged him at this time and he at least needs to transition to rehab once discharged from this mental health unit. Appetite stable sleep stable. No psychotropic medication questions at this time. Mental status exam: The patient is alert he is dressed in his own clothing hygiene grooming are adequate. Eye contact is appropriate. Speech is fluent spontaneous nonpressured. He indicates he feels safe in the hospital he states he would not feel safe if discharged without a sufficient plan. He reminds me that he has severe violent thoughts when using alcohol. He demonstrates no verbal or physical aggressiveness today. Insight and judgment slowly improving. He demonstrates no evidence of psychosis he is endorsing no auditory or visual hallucinations. Affect is constricted. Plan: The patient will continue on his current psychotropic medication. We will monitor him for safety. He is encouraged to participate in the milieu. We will await a placement date at [facility] or another inpatient chemical dependency treatment center. Vital signs reviewed.
[2018-10-14] MEDS: MULTIVITAMINS, THERA 1 EACH TAB PO SCH (11:57)
[2018-10-14] MEDS: THIAMINE 100 MG TAB PO SCH (11:57)
[2018-10-14] MEDS: LORazepam 1 MG TAB PO PRN (11:58)
[2018-10-14] MEDS: MELATONIN 5 MG TABLET PO SCH (20:52)
[2018-10-14] MEDS: traZODone HCL 50 MG TAB PO SCH (20:53)
[2018-10-14 20:55] VITALS: RESP 16
[2018-10-15 07:10] VITALS: BP 127/82; PULSE 70; TEMP 97.6
[2018-10-15] MEDS: SERTRALINE 100 MG TAB PO SCH (08:38)
[2018-10-15] MEDS: PROPRANOLOL 20 MG TAB PO SCH (08:38)
[2018-10-15] MEDS: GABAPENTIN 300 MG CAP PO SCH (08:38)
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
== END 2018-10-15 10:03 | disposition home or self-care (01) | DRG 885 ==
LOC: EC 23:26 → 3MHU 10-06 15:47
PROVIDERS: ADMIT Psychiatry & Neurology Psychiatry; ATTEND Psychiatry & Neurology Psychiatry
DX: F33.2 Major depressive disorder, recurrent severe without psychotic features (principal); R45.851 Suicidal ideations; F43.10 Post-traumatic stress disorder, unspecified; F90.9 Attention-deficit hyperactivity disorder, unspecified type; I11.9 Hypertensive heart disease without heart failure; K76.0 Fatty (change of) liver, not elsewhere classified; R45.850 Homicidal ideations; G62.9 Polyneuropathy, unspecified; G89.29 Other chronic pain; F10.10 Alcohol abuse, uncomplicated; Z79.899 Other long term (current) drug therapy; Z91.5 Personal history of self-harm; Z87.01 Personal history of pneumonia (recurrent)
CPT/HCPCS: 36415; 80048; 80053; 80061; 80306; 80320; 81003; 83036; 84443; 85025; 87390; 87491; 87591; 96374; 99285

== ENCOUNTER 2019-01-05 18:54 | Emergency (ER) | payer OTHER ==
[2019-01-05 19:09] VITALS: BP 140/83; PULSE 104; RESP 18; TEMP 98.3
[2019-01-05] MEDS ORDERED: methylPREDNISolone SOD SUCCI 125 MG/2 ML VIAL IM ONE (19:30)
[2019-01-05] MEDS ORDERED: KETOROLAC 30 MG/ML 1 ML VIAL IM STA (19:30)
--- NOTE | 2019-01-05 20:16 | ED ---
General Adult HPI - General Chief complaint: Extremity Problem,Nontraumatic Stated complaint: Pinched nerve in back going down arm Time Seen by Provider: 01/05/19 19:22 Source: patient, RN notes reviewed Mode of arrival: ambulatory Limitations: no limitations - History of Present Illness Initial comments: 33-year-old male presents to the emergency department with a chief complaint of right arm pain. Patient states he had a neck injury several years ago through a weightlifting accident. States he has had nerve pain extending from his neck to his right arm since that time. Patient states sometimes this becomes exacerbated. He states that over the past 3 weeks he has been sleeping in a different bed and that is not as good as his bed and has been exacerbating his pain. States it is now radiating down his arm to his bypass.. States it is a sharp shooting pain that worsens when he moves his arm or neck. Patient denies any chest pain or shortness of breath. States this pain is consistent with previous radicular pain. Patient did have orthopedic management before he moved to this area however does not have an orthopedic doctor at this time. Denies fevers or chills. Denies weakness in the upper extremities. Denies loss of sensation. Patient has no other complaints at this time including shortness of breath, chest pain, abdominal pain, nausea or vomiting, headache, or visual changes. - Related Data Previous Rx's Medication Instructions Recorded Propranolol [Inderal] 20 mg PO TID #90 tab 10/06/18 Gabapentin [Neurontin] 300 mg PO TID #45 cap 10/15/18 Melatonin 5 mg PO HS #30 tablet 10/15/18 Propranolol [Inderal] 20 mg PO TID #45 tab 10/15/18 Sertraline [Zoloft] 100 mg PO DAILY #30 tab 10/15/18 traZODone HCL [Desyrel] 50 mg PO HS #30 tab 10/15/18 predniSONE 50 mg PO DAILY #5 tablet 01/05/19 Allergies Allergy/AdvReac Type Severity Reaction Status Date / Time No Known Allergies Allergy Verified 01/05/19 19:09 Review of Systems ROS Statement: Those systems with pertinent positive or pertinent negative responses have been documented in the HPI. ROS Other: All systems not noted in ROS Statement are negative. Past Medical History Past Medical History: Hypertension, Musculoskeletal Disorder Additional Past Medical History / Comment(s): 3 surgeries to L Knee, and the knee cap was removed 05/31, History of Any Multi-Drug Resistant Organisms: None Reported Past Surgical History: Orthopedic Surgery, Tonsillectomy Additional Past Surgical History / Comment(s): left knee 3 surgeries, Past Anesthesia/Blood Transfusion Reactions: No Reported Reaction Additional Past Anesthesia/Blood Transfusion Reaction / Comment(s): has never had a blood transfusion Past Psychological History: ADD/ADHD, Anxiety, Depression, PTSD Smoking Status: Never smoker Past Alcohol Use History: Abuse, Daily, Heavy Past Drug Use History: Heroin, Marijuana - Past Family History Mother Family Medical History: No Reported History Father Family Medical History: No Reported History Brother(s) Family Medical History: No Reported History General Exam Limitations: no limitations General appearance: alert, in no apparent distress Head exam: Present: atraumatic, normocephalic, normal inspection Eye exam: Present: normal appearance, PERRL, EOMI. Absent: scleral icterus, conjunctival injection, periorbital swelling ENT exam: Present: normal exam, mucous membranes moist Neck exam: Present: normal inspection, full ROM. Absent: tenderness (No significant tenderness noted in the cervical spine), meningismus, lymphadenopathy Respiratory exam: Present: normal lung sounds bilaterally. Absent: respiratory distress, wheezes, rales, rhonchi, stridor Cardiovascular Exam: Present: regular rate, normal rhythm, normal heart sounds. Absent: systolic murmur, diastolic murmur, rubs, gallop, clicks Extremities exam: Present: full ROM (Patient has full range motion of the right shoulder however states pain worsens when he flexes the right shoulder), normal capillary refill (Capillary refill less than 2 seconds, radial pulse 2+ in the right upper extremity), other (Sensation intact in the right upper extremity). Absent: tenderness (no Significant generalized tenderness) Back exam: Absent: vertebral tenderness Neurological exam: Present: alert, oriented X3, CN II-XII intact Psychiatric exam: Present: normal affect, normal mood Course Vital Signs 01/05/19 19:07 Temperature 98.3 F Pulse Rate 104 H Respiratory 18 Rate Blood Pressure 140/83 O2 Sat by Pulse 99 Oximetry Medical Decision Making - Medical Decision Making 33-year-old male presents to the emergency department for a chief complaint of right upper extremity pain. Patient had a weightlifting accident several years ago and has had symptoms ever since. Sometimes this does get exacerbated and as patient has been sleeping in a different bed for the past 3 weeks he states this has been worsening symptoms. He has a shooting pain from his neck or his shoulder to his right bicep. Movement does worsen the pain. Sensation and neurovascular status is intact. Patient was given Toradol and steroids as symptoms are consistent with cervical radiculopathy. Patient was given follow- up to orthopedics as he likely may need an MRI if symptoms do not resolve. Patient is in agreement with this. If he has worsening symptoms however he will return here. Disposition Clinical Impression: Cervical radiculopathy Disposition: HOME SELF-CARE Condition: Good Instructions (If sedation given, give patient instructions): Cervical Radiculopathy (ED) Additional Instructions: Please take Motrin or Tylenol for pain. Take steroid as directed. Be sure to eat food while taking steroid. Follow-up with orthopedics in one to 2 days. If you're having any worsening symptoms return here to the emergency department. Prescriptions: predniSONE 50 mg PO DAILY #5 tablet Is patient prescribed a controlled substance at d/c from ED?: No Referrals: [facility] [Primary Care Provider] - 1-2 days Rylee Rose DO [Doctor of Osteopathic Medicine] - 1-2 days Time of Disposition: 20:14
[2019-01-05] MEDS ORDERED: Acetaminophen-Codeine 300-30mg TAB PO STA (20:28)
== END 2019-01-05 20:47 | disposition home or self-care (01) ==
LOC: EC 18:54
DX: M54.12 Radiculopathy, cervical region (principal); Z87.828 Personal history of other (healed) physical injury and trauma
CPT/HCPCS: 99283; 96372 ×2; J2930; J1885